=== PATIENT | male | born 1990 | race Caucasian/White ===

== ENCOUNTER 2019-03-22 23:05 | Emergency (ER) | payer SELFPAY ==
[~2019-03-22] VITALS: Ht 177.8 cm; Wt 81.6 kg
--- NOTE | 2019-03-23 00:21 | NUR ---
PATIENT WAS MSE BY DR CHOW IN ROOM 04A.
[2019-03-23] MEDS ORDERED: ALBUTEROL SULFATE 2.5 MG/3 ML NEBU NEB ONE (00:30)
[2019-03-23] MEDS ORDERED: IPRATROPIUM BROMIDE 0.5 MG/2.5 ML NEBU NEB ONE (00:30)
[2019-03-23] MEDS ORDERED: ACETAMINOPHEN ES 500 MG TABLET PO ONE (00:30)
[2019-03-23] MEDS ORDERED: predniSONE 20 MG TABLET PO ONE (00:30)
[2019-03-23] MEDS ORDERED: IPRATROPIUM BROMIDE 0.5 MG/2.5 ML NEBU ONE (00:32)
[2019-03-23] MEDS ORDERED: ALBUTEROL SULFATE 2.5 MG/3 ML NEBU ONE (00:32)
[2019-03-23] MEDS ORDERED: ACETAMINOPHEN ES 500 MG TABLET ONE (00:41)
[2019-03-23] MEDS ORDERED: predniSONE 20 MG TABLET ONE (00:41)
[2019-03-23] MEDS ORDERED: AZITHROMYCIN 250 MG TABLET PO ONE (01:00)
--- NOTE | 2019-03-23 01:00 | NUR ---
DR CHOW SPOKE WITH PATIENT MADE AWARE OF TEST RESULTS. WILL DC HOME.
[2019-03-23] MEDS ORDERED: AZITHROMYCIN 250 MG TABLET ONE (01:04)
--- NOTE | 2019-03-23 01:06 | NUR ---
Patient discharged to home in stable conditon. Written and verbal after care instructions given. Patient verbalizes understanding of instructions.
[2019-03-23 01:08] VITALS: BP 137/75
== END 2019-03-23 01:11 | disposition home or self-care (01) ==
LOC: ER 23:07
DX: J40 Bronchitis, not specified as acute or chronic (principal); J98.01 Acute bronchospasm; F17.290 Nicotine dependence, other tobacco product, uncomplicated; M79.10 Myalgia, unspecified site; Z71.6 Tobacco abuse counseling
CPT/HCPCS: 71045; 94640; 99284; 99406; J7512; A4663; A9150; J3590; Q0144

== ENCOUNTER 2020-09-15 16:57 | Emergency (ER) | payer OTHER ==
[~2020-09-15] VITALS: Ht 175.3 cm; Wt 83.9 kg
--- NOTE | 2020-09-15 17:11 | NUR ---
at bedside for assessment
[2020-09-15] MEDS ORDERED: ALBU8.5H8 INH (17:49)
[2020-09-15] MEDS ORDERED: BENZ200C53 PO (17:49)
[2020-09-15] MEDS ORDERED: ALBUTEROL SULFATE 2.5 MG/3 ML NEBU NEB ONE (18:00)
[2020-09-15] MEDS ORDERED: IPRATROPIUM BROMIDE 0.5 MG/2.5 ML NEBU NEB ONE (18:00)
[2020-09-15] MEDS ORDERED: ALBUTEROL SULFATE 2.5 MG/3 ML NEBU ONE (18:05)
[2020-09-15] MEDS ORDERED: IPRATROPIUM BROMIDE 0.5 MG/2.5 ML NEBU ONE (18:06)
--- NOTE | 2020-09-15 18:29 | NUR ---
Patient discharged to home in stable condition. Able to ambulate with steady gait, States he feels better after breathing treatment, Written and verbal after care instructions given. Patient verbalizes understanding of instructions. Stressed follow up or return to ER for worsening s/s.
[2020-09-15 18:31] VITALS: BP 124/61
== END 2020-09-15 18:32 | disposition home or self-care (01) ==
LOC: ER 16:57
DX: J20.9 Acute bronchitis, unspecified (principal); Z20.822 Contact with and (suspected) exposure to COVID-19; R06.00 Dyspnea, unspecified
CPT/HCPCS: 71046; A4663; J3590